=== PATIENT | female | born 1950 | race Caucasian/White ===

== ENCOUNTER 2023-10-22 23:31 | Inpatient (IN) | payer MEDICARE ==
[~2023-10-22] VITALS: Ht 167.6 cm; Wt 75.7 kg
[2023-10-23] VITALS (9 sets, daily range): BP systolic 113–134; BP diastolic 55–65; PULSE 69–82; RESP 16–20; TEMP 97.9–98.2; O2SAT 95–100
[2023-10-23] MEDS: SODIUM CHLORIDE 0.9% 1000ML 1,000 ML IV STA (00:19)
[2023-10-23 00:26] LABS: BASOPHILS # (AUTO) 0.2 (0.0-0.1); BASOPHILS % 0.4 % (0.0-1.0); LYMPHOCYTES # (AUTO) 32.5 (1.0-3.2); LYMPHOCYTES % 91.1 % (18.0-39.1); MEAN CORPUSCULAR HEMOGLOBIN 25.5 pg (28-32); MEAN CORPUSCULAR HGB CONC 29.6 g/dL (31-35); MEAN CORPUSCULAR VOLUME 86.1 fL (81-99); MONOCYTES # (AUTO) 1.7 (0.2-0.8); MONOCYTES % 4.8 % (4.4-11.3); NEUTROPHILS # (AUTO) 1.3 (2.1-6.9); NEUTROPHILS % 3.6 % (38.7-80.0); RED BLOOD COUNT 2.67 x10e6/uL (3.6-5.1); RED CELL DISTRIBUTION WIDTH 22.6 % (11.7-14.4)
[2023-10-23 00:41] LABS: ALBUMIN 2.8 g/dL (3.5-5.0); ALBUMIN/GLOBULIN RATIO 0.4 (0.8-2.0); ANION GAP 17.5 mmol/L (8-16); BILIRUBIN,TOTAL 1.3 mg/dL (0.2-1.2); CREATININE, SERUM 1.31 mg/dL (0.57-1.11); POTASSIUM 3.5 mmol/L (3.5-5.1); TOTAL PROTEIN 9.4 g/dL (6.5-8.1)
[2023-10-23 00:46] LABS: HEMOGLOBIN 6.8 g/dL (12.0-16.0); PLATELET COUNT 25 x10e3/uL (140-360); TROPONIN I 0.006 ng/mL (0-0.300); WHITE BLOOD COUNT 35.61 x10e3/uL (4.8-10.8)
[2023-10-23] MEDS ORDERED: ONDANSETRON HCL INJ 2MG/ML 2ML 2 MG/ML VIAL IV PRN (05:30)
[2023-10-23] MEDS ORDERED: Morphine 4mg INJECTION 4 MG/ML INJ IV PRN (05:30)
[2023-10-23] MEDS ORDERED: SODIUM CHLORIDE 0.9% 250ML 250 ML ONE (05:34)
[2023-10-23 06:07] LABS: LYMPHOCYTES % (MANUAL) 84 % (19-48); MONOCYTES % (MANUAL) 2 % (3.4-9.0); NEUTROPHILS % (MANUAL) 14 % (40-74)
[2023-10-23 06:08] LABS: ANISOCYTOSIS MODERATE; HYPOCHROMASIA SLIGHT; PLATELET ESTIMATE MARKEDLY DECREASED; PLATELET MORPHOLOGY COMMENT NORMAL; RBC MORPHOLOGY COMMENT ABNORMAL
[2023-10-23] MEDS ORDERED: IOPAMIDOL 370 MG/ML 100 ML INFUS..BTL INJ ONE (06:10)
[2023-10-23 06:13] LABS: SMUDGE CELLS MODERATE
[2023-10-23] MEDS: SODIUM CHLORIDE 0.9% 1000ML 1,000 ML IV SCH (09:20)
[2023-10-23 12:55] LABS: INR 1.2
[2023-10-23 12:56] LABS: PARTIAL THROMBOPLASTIN TIME 28.4 seconds (23.8-35.5)
[2023-10-23 13:08] LABS: TROPONIN I 0.001 ng/mL (0-0.300)
[2023-10-23 13:21] LABS: FERRITIN 212.21 ng/mL (4.63-204.00)
[2023-10-23] MEDS ORDERED: PLAVIX75 MG PO (13:42)
[2023-10-23] MEDS ORDERED: LIPITOR20 MG PO (13:42)
[2023-10-23] MEDS ORDERED: CARVEDILOL3.125 MG PO (13:42)
[2023-10-23] MEDS ORDERED: NIFEDIPINE ER30 M1 PO (13:42)
[2023-10-23] MEDS ORDERED: K-DUR10 MEQ PO (13:42)
[2023-10-23] MEDS ORDERED: HYDROCHLOROTHIA25 MG PO (13:42)
[2023-10-23 15:48] LABS: FOLATE 3.1 ng/mL (7.0-15.4)
[2023-10-23 16:56] LABS: TROPONIN I 0.001 ng/mL (0-0.300)
[2023-10-24] VITALS (8 sets, daily range): BP systolic 109–139; BP diastolic 51–59; PULSE 66–76; RESP 16–20; TEMP 97.4–98.3; O2SAT 95–99
[2023-10-24 05:18] LABS: BASOPHILS % 0.1 % (0.0-1.0); HEMATOCRIT 26.2 % (34.2-44.1); HEMOGLOBIN 7.9 g/dL (12.0-16.0); LYMPHOCYTES # (AUTO) 29.7 (1.0-3.2); LYMPHOCYTES % 91.7 % (18.0-39.1); MEAN CORPUSCULAR HEMOGLOBIN 26.2 pg (28-32); MEAN CORPUSCULAR HGB CONC 30.2 g/dL (31-35); MONOCYTES # (AUTO) 1.5 (0.2-0.8); MONOCYTES % 4.6 % (4.4-11.3); NEUTROPHILS # (AUTO) 1.2 (2.1-6.9); NEUTROPHILS % 3.5 % (38.7-80.0); PLATELET COUNT 18 x10e3/uL (140-360); RED BLOOD COUNT 3.01 x10e6/uL (3.6-5.1); RED CELL DISTRIBUTION WIDTH 21.4 % (11.7-14.4)
[2023-10-24 05:36] LABS: ALBUMIN 2.6 g/dL (3.5-5.0); ALBUMIN/GLOBULIN RATIO 0.4 (0.8-2.0); ANION GAP 16.4 mmol/L (8-16); BILIRUBIN,TOTAL 1.4 mg/dL (0.2-1.2); CALCIUM 8.5 mg/dL (8.4-10.2); CREATININE, SERUM 1.1 mg/dL (0.57-1.11); TOTAL PROTEIN 8.6 g/dL (6.5-8.1)
[2023-10-24 05:43] LABS: POTASSIUM 3.4 mmol/L (3.5-5.1)
[2023-10-24 06:08] LABS: TROPONIN I 0.004 ng/mL (0-0.300)
[2023-10-24 06:57] LABS: LYMPHOCYTES % (MANUAL) 92 % (19-48); MONOCYTES % (MANUAL) 1 % (3.4-9.0); NEUTROPHILS % (MANUAL) 7 % (40-74); PLATELET ESTIMATE MARKEDLY DECREASED
[2023-10-24 06:58] LABS: ANISOCYTOSIS MODERATE; HYPOCHROMASIA SLIGHT; PLATELET MORPHOLOGY COMMENT NORMAL; RBC MORPHOLOGY COMMENT ABNORMAL; SMUDGE CELLS MODERATE
[2023-10-24 08:02] LABS: HEPATITIS B SURFACE AG (P) Negative
[2023-10-24 08:03] LABS: HEPATITIS C ANTIBODY Non Reactive
[2023-10-24] MEDS: NIFEDIPINE CR 30 MG TAB PO SCH (09:52)
[2023-10-24] MEDS: CARVEDILOL 3.125 MG TAB PO SCH (09:53)
[2023-10-24] MEDS ORDERED: SODIUM CHLORIDE 0.9% 100 ML ONE (18:34)
[2023-10-24] MEDS: FOLIC ACID 1 MG TAB PO SCH (18:37)
[2023-10-25] VITALS (7 sets, daily range): BP systolic 102–121; BP diastolic 51–71; PULSE 66–79; RESP 16–20; TEMP 97.9–98.7; O2SAT 97–98
[2023-10-25] MEDS: CYANOCOBALAMIN 1,000 MCG TAB PO ONE (01:43)
[2023-10-25 06:17] LABS: HEMATOCRIT 24.4 % (34.2-44.1); HEMOGLOBIN 7.5 g/dL (12.0-16.0); MEAN CORPUSCULAR HEMOGLOBIN 26.8 pg (28-32); MEAN CORPUSCULAR HGB CONC 30.7 g/dL (31-35); MEAN CORPUSCULAR VOLUME 87.1 fL (81-99); RED CELL DISTRIBUTION WIDTH 21.5 % (11.7-14.4); WHITE BLOOD COUNT 27.91 x10e3/uL (4.8-10.8)
[2023-10-25 06:29] LABS: PLATELET COUNT 25 x10e3/uL (140-360)
[2023-10-25 06:32] LABS: ALBUMIN 2.5 g/dL (3.5-5.0); ALBUMIN/GLOBULIN RATIO 0.4 (0.8-2.0); ANION GAP 16.4 mmol/L (8-16); BILIRUBIN,TOTAL 1.4 mg/dL (0.2-1.2); CALCIUM 8.7 mg/dL (8.4-10.2); TOTAL PROTEIN 8.1 g/dL (6.5-8.1)
[2023-10-25 06:39] LABS: POTASSIUM 3.4 mmol/L (3.5-5.1)
[2023-10-25] MEDS: CYANOCOBALAMIN 1,000 MCG TAB PO SCH (11:22)
[2023-10-25] MEDS ORDERED: ONDANSETRON HCL 4 MG ORAL DISINTEGRATING TAB PO PRN (11:30)
[2023-10-25 12:07] LABS: LYMPHOCYTES % (MANUAL) 95 % (19-48); MONOCYTES % (MANUAL) 2 % (3.4-9.0); NEUTROPHILS % (MANUAL) 3 % (40-74); PLATELET ESTIMATE MARKEDLY DECREASED; PLATELET MORPHOLOGY COMMENT NORMAL; RBC MORPHOLOGY COMMENT NORMAL
[2023-10-25] MEDS: SODIUM FERRIC GLUCONATE COMPLX 125 MG in SODIUM CHLORIDE 0.9% 100 ML IV ONE ×2 (13:45→13:51)
[2023-10-25] MEDS: SODIUM CHLORIDE 0.9% 250ML 250 ML IV ONE (13:45)
[2023-10-26] VITALS (7 sets, daily range): BP systolic 91–132; BP diastolic 52–79; PULSE 64–84; RESP 17–19; TEMP 97.7–98.4; O2SAT 96–100
[2023-10-26] MEDS ORDERED: PIPERACILLIN/TAZOBACTAM 3.375 GM VIAL ONE (09:09)
[2023-10-26] MEDS: PREDNISONE 20 MG TAB PO SCH (13:12)
[2023-10-26 15:02] LABS: BASOPHILS # (AUTO) 0.1 (0.0-0.1); BASOPHILS % 0.3 % (0.0-1.0); HEMATOCRIT 24.6 % (34.2-44.1); HEMOGLOBIN 7.4 g/dL (12.0-16.0); LYMPHOCYTES # (AUTO) 23.4 (1.0-3.2); LYMPHOCYTES % 93.6 % (18.0-39.1); MEAN CORPUSCULAR HEMOGLOBIN 26.3 pg (28-32); MEAN CORPUSCULAR HGB CONC 30.1 g/dL (31-35); MEAN CORPUSCULAR VOLUME 87.5 fL (81-99); MONOCYTES # (AUTO) 0.6 (0.2-0.8); MONOCYTES % 2.5 % (4.4-11.3); NEUTROPHILS # (AUTO) 0.9 (2.1-6.9); NEUTROPHILS % 3.5 % (38.7-80.0); RED BLOOD COUNT 2.81 x10e6/uL (3.6-5.1); RED CELL DISTRIBUTION WIDTH 21.7 % (11.7-14.4); WHITE BLOOD COUNT 25.01 x10e3/uL (4.8-10.8)
[2023-10-26 15:10] LABS: PLATELET COUNT 19 x10e3/uL (140-360)
[2023-10-26] MEDS: ROPINIROLE HCL 0.25 MG TAB PO SCH (16:42)
[2023-10-26 16:44] LABS: HYPOCHROMASIA MODERATE; LYMPHOCYTES % (MANUAL) 87 % (19-48); MONOCYTES % (MANUAL) 2 % (3.4-9.0); NEUTROPHILS % (MANUAL) 11 % (40-74); PLATELET ESTIMATE MARKEDLY DECREASED; PLATELET MORPHOLOGY COMMENT NORMAL
[2023-10-26] MEDS: PREDNISONE 10 MG TAB PO ONE (18:25)
[2023-10-27] VITALS: BP_SYST 111; BP_SYST 129; BP_DIAS 54; BP_DIAS 63; PULSE 64; PULSE 75; RESP 17; RESP 18; TEMP 97.7; TEMP 97.8; O2SAT 100; O2SAT 99
[2023-10-27 05:45] LABS: BASOPHILS % 0.1 % (0.0-1.0); EOSINOPHILS # (AUTO) 0.1 (0.0-0.4); EOSINOPHILS % 0.2 % (0.0-6.0); HEMATOCRIT 25.9 % (34.2-44.1); HEMOGLOBIN 7.7 g/dL (12.0-16.0); LYMPHOCYTES # (AUTO) 26.7 (1.0-3.2); LYMPHOCYTES % 93.1 % (18.0-39.1); MEAN CORPUSCULAR HEMOGLOBIN 26.4 pg (28-32); MEAN CORPUSCULAR HGB CONC 29.7 g/dL (31-35); MEAN CORPUSCULAR VOLUME 88.7 fL (81-99); MONOCYTES # (AUTO) 0.4 (0.2-0.8); MONOCYTES % 1.4 % (4.4-11.3); NEUTROPHILS # (AUTO) 1.5 (2.1-6.9); NEUTROPHILS % 5.1 % (38.7-80.0); RED BLOOD COUNT 2.92 x10e6/uL (3.6-5.1); RED CELL DISTRIBUTION WIDTH 21.7 % (11.7-14.4); WHITE BLOOD COUNT 28.67 x10e3/uL (4.8-10.8)
[2023-10-27 05:58] LABS: PLATELET COUNT 29 x10e3/uL (140-360)
[2023-10-27 06:03] LABS: ANION GAP 18.7 mmol/L (8-16); CALCIUM 8.9 mg/dL (8.4-10.2); CREATININE, SERUM 1.09 mg/dL (0.57-1.11); POTASSIUM 3.7 mmol/L (3.5-5.1)
[2023-10-27 07:56] VITALS: BP 111/54; PULSE 75; RESP 17; TEMP 97.7; O2SAT 99
[2023-10-27 08:21] VITALS: BP 125/58; PULSE 82; RESP 20; TEMP 98; O2SAT 97
[2023-10-27 10:37] LABS: LYMPHOCYTES % (MANUAL) 96 % (19-48); NEUTROPHILS % (MANUAL) 4 % (40-74)
[2023-10-27 10:38] LABS: HYPOCHROMASIA MODERATE; PLATELET ESTIMATE MARKEDLY DECREASED; PLATELET MORPHOLOGY COMMENT NORMAL
[2023-10-27] MEDS: SODIUM CHLORIDE 0.9% 100 ML ONE (10:52)
[2023-10-27 12:38] VITALS: BP 96/60; PULSE 64; RESP 18; TEMP 97.5; O2SAT 95
[2023-10-31 07:27] LABS: SPE ALPHA 1 GLOBULIN 0.4
[2023-10-31 07:28] LABS: SPE GAMMA GLOBULIN 2.6; SPE TOTAL PROTEIN 7.8
[2023-10-31 07:29] LABS: GLOBULIN TOTAL 5.1
[2023-10-31 07:30] LABS: A/G RATIO 0.5; KAPPA LIGHT CHAINS 54.8
[2023-10-31 07:31] LABS: KAPPA/LAMBDA RATIO 3.81; LAMBDA LIGHT CHAINS 14.4
== END 2023-10-27 12:25 | disposition home or self-care (01) | DRG 841 ==
LOC: ER 23:41 → ERHOLD 10-23 05:34 → MED/SURG2 10-23 06:29
PROVIDERS: ADMIT Internal Medicine; ATTEND Internal Medicine
PROC: 30233N1 Transfusion of Nonautologous Red Blood Cells into Peripheral Vein, Percutaneous Approach (ICD-10-PCS; principal; 2023-10-23)
PROC: 30233R1 Transfusion of Nonautologous Platelets into Peripheral Vein, Percutaneous Approach (ICD-10-PCS; 2023-10-25)
DX: C91.10 Chronic lymphocytic leukemia of B-cell type not having achieved remission (principal); J81.1 Chronic pulmonary edema; K76.6 Portal hypertension; K74.69 Other cirrhosis of liver; R18.8 Other ascites; K75.81 Nonalcoholic steatohepatitis (NASH); D69.59 Other secondary thrombocytopenia; D73.2 Chronic congestive splenomegaly; D64.9 Anemia, unspecified; E78.5 Hyperlipidemia, unspecified; E87.70 Fluid overload, unspecified; K80.20 Calculus of gallbladder without cholecystitis without obstruction; I10 Essential (primary) hypertension; I25.10 Atherosclerotic heart disease of native coronary artery without angina pectoris; Z11.52 Encounter for screening for COVID-19; G25.81 Restless legs syndrome; N28.9 Disorder of kidney and ureter, unspecified; R63.4 Abnormal weight loss; Z79.02 Long term (current) use of antithrombotics/antiplatelets; Z95.5 Presence of coronary angioplasty implant and graft; F17.210 Nicotine dependence, cigarettes, uncomplicated
CPT/HCPCS: 36415; 70450; 71045; 71250; 74177; 80048; 80053; 82550; 82607; 82728; 82746; 83010; 83540; 83615; 83690; 83880; 84165; 84466; 84484; 85007; 85025; 85027; 85045; 85610; 85730; 86850; 86900; 86920; 88184; 93005; 93306; 93880; 94799; 99284; J2543; J2916; J7030; J7050; J7512; P9016; P9034; Q9967; U0002

== ENCOUNTER 2023-11-11 16:29 | Inpatient (IN) | payer MEDICARE ==
[~2023-11-11] VITALS: Ht 167.6 cm; Wt 75.7 kg
[~2023-11-11 16:29] MED LIST: CARVEDILOL3.125 MG PO; HYDROCHLOROTHIA25 MG PO; K-DUR10 MEQ PO; LIPITOR20 MG PO; NIFEDIPINE ER30 M1 PO; PLAVIX75 MG PO
[2023-11-11 18:52] LABS: BASOPHILS # (AUTO) 0.2 (0.0-0.1); BASOPHILS % 0.4 % (0.0-1.0); LYMPHOCYTES # (AUTO) 44.1 (1.0-3.2); LYMPHOCYTES % 92.2 % (18.0-39.1); MEAN CORPUSCULAR HEMOGLOBIN 27.4 pg (28-32); MEAN CORPUSCULAR HGB CONC 30.3 g/dL (31-35); MEAN CORPUSCULAR VOLUME 90.5 fL (81-99); MONOCYTES # (AUTO) 2.1 (0.2-0.8); MONOCYTES % 4.3 % (4.4-11.3); NEUTROPHILS # (AUTO) 1.4 (2.1-6.9); RED BLOOD COUNT 2.52 x10e6/uL (3.6-5.1); RED CELL DISTRIBUTION WIDTH 23.8 % (11.7-14.4)
[2023-11-11 18:55] LABS: HEMATOCRIT 22.8 % (34.2-44.1); PLATELET COUNT 54 x10e3/uL (140-360)
[2023-11-11 18:56] LABS: WHITE BLOOD COUNT 47.81 x10e3/uL (4.8-10.8)
[2023-11-11 18:57] LABS: HEMOGLOBIN 6.9 g/dL (12.0-16.0)
[2023-11-11 19:03] LABS: INR 1.24; PROTHROMBIN TIME 16.4 seconds (11.9-14.5)
[2023-11-11 19:04] LABS: PARTIAL THROMBOPLASTIN TIME 27.2 seconds (23.8-35.5)
[2023-11-11 19:13] LABS: ALBUMIN 2.7 g/dL (3.5-5.0); ALBUMIN/GLOBULIN RATIO 0.4 (0.8-2.0); ANION GAP 19.5 mmol/L (8-16); BILIRUBIN,TOTAL 1.5 mg/dL (0.2-1.2); CALCIUM 9.1 mg/dL (8.4-10.2); CREATININE, SERUM 1.46 mg/dL (0.57-1.11); TOTAL PROTEIN 9.5 g/dL (6.5-8.1)
[2023-11-11 19:14] LABS: POTASSIUM 5.5 mmol/L (3.5-5.1)
[2023-11-11 20:06] LABS: LYMPHOCYTES % (MANUAL) 94 % (19-48); MONOCYTES % (MANUAL) 1 % (3.4-9.0); NEUTROPHILS % (MANUAL) 5 % (40-74)
[2023-11-11 20:07] LABS: ANISOCYTOSIS MODERATE; HYPOCHROMASIA SLIGHT; PLATELET ESTIMATE MARKEDLY DECREASED; PLATELET MORPHOLOGY COMMENT NORMAL; RBC MORPHOLOGY COMMENT ABNORMAL; SMUDGE CELLS MODERATE
[2023-11-11] MEDS ORDERED: ONDANSETRON HCL INJ 2MG/ML 2ML 2 MG/ML VIAL IV PRN (20:30)
[2023-11-11] MEDS ORDERED: DEXTROSE 50% SYRINGE 50 ML IV PRN (20:30)
[2023-11-11] MEDS ORDERED: SODIUM CHLORIDE FLUSH 10 ML SYR INJ PRN (20:30)
[2023-11-11] MEDS: INSULIN REGULAR, HUMAN 100 UNIT/1 ML SQ SCH (21:00)
[2023-11-11 21:54] VITALS: PULSE 70; RESP 20; TEMP 98.8
[2023-11-11 22:00] VITALS: BP 117/55; PULSE 73; RESP 18; TEMP 97.4; O2SAT 100
[2023-11-11 22:30] VITALS: PULSE 73; RESP 18; O2SAT 96
[2023-11-11] MEDS ORDERED: FOLIC ACID0.4 MG PO (23:19)
[2023-11-11] MEDS ORDERED: B12 ACTIVE1000 MCG PO (23:19)
[2023-11-11] MEDS ORDERED: FEROSUL325 MG PO (23:19)
[2023-11-11] MEDS ORDERED: CARVEDILOL3.125 MG PO (23:19)
[2023-11-11] MEDS ORDERED: ROPINIROLE HCL1 MG PO (23:19)
[2023-11-11] MEDS ORDERED: FARXIGA10 MG PO (23:19)
[2023-11-11 23:20] VITALS: BP 122/56; PULSE 73; RESP 18; TEMP 97.4; O2SAT 96
[2023-11-12] VITALS (8 sets, daily range): BP systolic 114–129; BP diastolic 52–63; PULSE 66–74; RESP 16–18; TEMP 97.4–97.9; O2SAT 94–100
[2023-11-12 10:52] LABS: HEMATOCRIT 25.4 % (34.2-44.1); HEMOGLOBIN 7.7 g/dL (12.0-16.0); LYMPHOCYTES # (AUTO) 46.7 (1.0-3.2); LYMPHOCYTES % 93.3 % (18.0-39.1); MEAN CORPUSCULAR HEMOGLOBIN 27.5 pg (28-32); MEAN CORPUSCULAR HGB CONC 30.3 g/dL (31-35); MEAN CORPUSCULAR VOLUME 90.7 fL (81-99); NEUTROPHILS # (AUTO) 1.3 (2.1-6.9); NEUTROPHILS % 2.6 % (38.7-80.0); PLATELET COUNT 30 x10e3/uL (140-360); RED CELL DISTRIBUTION WIDTH 21.9 % (11.7-14.4)
[2023-11-12 11:03] LABS: WHITE BLOOD COUNT 50.11 x10e3/uL (4.8-10.8)
[2023-11-12 11:17] LABS: ALBUMIN 2.6 g/dL (3.5-5.0); ALBUMIN/GLOBULIN RATIO 0.4 (0.8-2.0); ANION GAP 17.3 mmol/L (8-16); BILIRUBIN,TOTAL 1.4 mg/dL (0.2-1.2); CALCIUM 9.2 mg/dL (8.4-10.2); CREATININE, SERUM 1.37 mg/dL (0.57-1.11); POTASSIUM 5.3 mmol/L (3.5-5.1)
[2023-11-12 12:13] LABS: LYMPHOCYTES % (MANUAL) 93 % (19-48); MONOCYTES % (MANUAL) 1 % (3.4-9.0); NEUTROPHILS % (MANUAL) 4 % (40-74); REACTIVE LYMPHOCYTES 2
[2023-11-12 12:14] LABS: SMUDGE CELLS MODERATE
[2023-11-12 12:17] LABS: ANISOCYTOSIS MODERATE; HYPOCHROMASIA SLIGHT; PLATELET ESTIMATE MARKEDLY DECREASED; PLATELET MORPHOLOGY COMMENT NORMAL; RBC MORPHOLOGY COMMENT ABNORMAL; TARGET CELLS FEW
[2023-11-12 12:21] LABS: POLYCHROMASIA FEW
[2023-11-12] MEDS ORDERED: ALBUTEROL/IPRATROPIUM 3 ML NEB NEB PRN (12:45)
[2023-11-12] MEDS ORDERED: SIMETHICONE 80 MG CHEW PO PRN (12:45)
[2023-11-12] MEDS ORDERED: MELATONIN 3 MG TAB PO PRN (12:45)
[2023-11-12] MEDS ORDERED: DOCUSATE SODIUM 100 MG CAP PO PRN (12:45)
[2023-11-12] MEDS: CARVEDILOL 3.125 MG TAB PO SCH (16:32)
[2023-11-12 17:41] LABS: FERRITIN 332.99 ng/mL (4.63-204.00)
[2023-11-12] MEDS ORDERED: CALCIUM CARBONATE 500 MG CHEWABLE TABS PO PRN (20:15)
[2023-11-13] VITALS: BP 115/62; PULSE 77; RESP 18; TEMP 97.8; O2SAT 95
[2023-11-13 04:00] VITALS: BP 103/49; PULSE 72; RESP 18; TEMP 98; O2SAT 95
[2023-11-13 04:56] LABS: BASOPHILS # (AUTO) 0.2 (0.0-0.1); BASOPHILS % 0.4 % (0.0-1.0); HEMATOCRIT 24.5 % (34.2-44.1); LYMPHOCYTES # (AUTO) 37.4 (1.0-3.2); LYMPHOCYTES % 92.9 % (18.0-39.1); MEAN CORPUSCULAR HEMOGLOBIN 27.9 pg (28-32); MEAN CORPUSCULAR HGB CONC 30.6 g/dL (31-35); MEAN CORPUSCULAR VOLUME 91.1 fL (81-99); MONOCYTES # (AUTO) 1.9 (0.2-0.8); MONOCYTES % 4.6 % (4.4-11.3); NEUTROPHILS # (AUTO) 0.8 (2.1-6.9); RED BLOOD COUNT 2.69 x10e6/uL (3.6-5.1); RED CELL DISTRIBUTION WIDTH 22.4 % (11.7-14.4)
[2023-11-13 05:13] LABS: HEMOGLOBIN 7.5 g/dL (12.0-16.0); PLATELET COUNT 26 x10e3/uL (140-360); WHITE BLOOD COUNT 40.22 x10e3/uL (4.8-10.8)
[2023-11-13 05:21] LABS: ANION GAP 8.8 mmol/L (8-16); CALCIUM 9.8 mg/dL (8.4-10.2); CREATININE, SERUM 1.09 mg/dL (0.57-1.11); POTASSIUM 4.8 mmol/L (3.5-5.1)
[2023-11-13 06:23] VITALS: PULSE 74; RESP 20; O2SAT 98
[2023-11-13 06:42] LABS: ANISOCYTOSIS MODERATE; HYPOCHROMASIA SLIGHT; LYMPHOCYTES % (MANUAL) 96 % (19-48); MONOCYTES % (MANUAL) 1 % (3.4-9.0); NEUTROPHILS % (MANUAL) 3 % (40-74); NUCLEATED RED BLOOD CELLS 1; PLATELET ESTIMATE MARKEDLY DECREASED; PLATELET MORPHOLOGY COMMENT NORMAL; RBC MORPHOLOGY COMMENT ABNORMAL
[2023-11-13] MEDS: SODIUM CHLORIDE 0.9% 250ML 250 ML ONE ×2 (08:28)
[2023-11-13] MEDS: MECOBALAMIN PO SCH (09:00)
[2023-11-13 09:30] VITALS: BP 116/55; PULSE 74; RESP 20; TEMP 98.1; O2SAT 98
[2023-11-13] MEDS: ROPINIROLE HCL 0.25 MG TAB PO SCH (10:05)
[2023-11-13] MEDS: FAMOTIDINE 20 MG/2 ML VIAL IV SCH (10:07)
[2023-11-13] MEDS: FERROUS SULFATE 325 MG TAB PO SCH (10:07)
[2023-11-13] MEDS: FOLIC ACID 1 MG TAB PO SCH (10:07)
[2023-11-13] MEDS ORDERED: SODIUM CHLORI1000 MG PO (13:23)
[2023-11-13] MEDS ORDERED: LIDOCAINE HCL 1% LOCAL INJ 20 ML VIAL ONE (14:04)
[2023-11-13] MEDS ORDERED: FENTANYL CITRATE/PF 100MCG/2 ML INJ ONE (14:19)
[2023-11-13] MEDS ORDERED: MIDAZOLAM HCL 2 MG/2 ML VIAL ONE (14:19)
[2023-11-13] MEDS ORDERED: SODIUM CHLORIDE 0.9% 250ML 250 ML ONE (14:19)
[2023-11-13] MEDS ORDERED: ONDANSETRON HCL 4 MG ORAL DISINTEGRATING TAB PO PRN (16:15)
[2023-11-13 17:20] VITALS: BP 119/64; PULSE 73; RESP 18; TEMP 97.7; O2SAT 99
[2023-11-13 17:42] VITALS: BP 119/64
[2023-11-14] MEDS ORDERED: FAMOTIDINE 20 MG TAB PO SCH (09:00)
== END 2023-11-13 18:16 | disposition home or self-care (01) | DRG 841 ==
LOC: ER 18:48 → ERHOLD 20:26 → MED/SURG 22:15
PROVIDERS: ADMIT Internal Medicine; ATTEND Internal Medicine
PROC: 30233N1 Transfusion of Nonautologous Red Blood Cells into Peripheral Vein, Percutaneous Approach (ICD-10-PCS; 2023-11-12)
PROC: 30233N1 Transfusion of Nonautologous Red Blood Cells into Peripheral Vein, Percutaneous Approach (ICD-10-PCS; 2023-11-12)
PROC: 07DR3ZX Extraction of Iliac Bone Marrow, Percutaneous Approach, Diagnostic (ICD-10-PCS; principal; 2023-11-13)
DX: C83.00 Small cell B-cell lymphoma, unspecified site (principal); E87.1 Hypo-osmolality and hyponatremia; E87.20 Acidosis, unspecified; D63.0 Anemia in neoplastic disease; D69.59 Other secondary thrombocytopenia; E87.5 Hyperkalemia; I12.9 Hypertensive chronic kidney disease with stage 1 through stage 4 chronic kidney disease, or unspecified chronic kidney disease; E11.22 Type 2 diabetes mellitus with diabetic chronic kidney disease; N18.30 Chronic kidney disease, stage 3 unspecified; K75.81 Nonalcoholic steatohepatitis (NASH); K74.60 Unspecified cirrhosis of liver; I25.10 Atherosclerotic heart disease of native coronary artery without angina pectoris; Z95.5 Presence of coronary angioplasty implant and graft; F17.200 Nicotine dependence, unspecified, uncomplicated; Z11.52 Encounter for screening for COVID-19; Z79.899 Other long term (current) drug therapy
CPT/HCPCS: 36415; 38222; 71045; 74470; 77012; 80048; 80053; 82607; 82728; 82746; 82948; 83010; 83540; 83615; 83880; 84466; 85025; 85045; 85610; 85730; 86850; 86900; 86920; 94799; 99152; 99284; J2001; J2250; J7050; P9016; U0002

== ENCOUNTER 2023-12-08 17:00 | Inpatient (IN) | payer MEDICARE ==
[~2023-12-08] VITALS: Ht 167.6 cm; Wt 75.7 kg
[~2023-12-08 17:00] MED LIST changes: +B12 ACTIVE1000 MCG PO; +FARXIGA10 MG PO; +FEROSUL325 MG PO; +FOLIC ACID0.4 MG PO; +ROPINIROLE HCL1 MG PO; +SODIUM CHLORI1000 MG PO
[2023-12-08 17:47] LABS: LYMPHOCYTES # (AUTO) 48.9 (1.0-3.2); LYMPHOCYTES % 89.8 % (18.0-39.1); MEAN CORPUSCULAR HEMOGLOBIN 28.3 pg (28-32); MEAN CORPUSCULAR HGB CONC 29.7 g/dL (31-35); MEAN CORPUSCULAR VOLUME 95.3 fL (81-99); MONOCYTES # (AUTO) 2.3 (0.2-0.8); MONOCYTES % 4.2 % (4.4-11.3); NEUTROPHILS # (AUTO) 3.2 (2.1-6.9); NEUTROPHILS % 5.8 % (38.7-80.0); RED BLOOD COUNT 2.12 x10e6/uL (3.6-5.1); RED CELL DISTRIBUTION WIDTH 20.9 % (11.7-14.4)
[2023-12-08 17:48] LABS: PLATELET COUNT 33 x10e3/uL (140-360)
[2023-12-08 17:50] LABS: HEMATOCRIT 20.2 % (34.2-44.1); WHITE BLOOD COUNT 54.45 x10e3/uL (4.8-10.8)
[2023-12-08 17:53] LABS: INR 1.24; PROTHROMBIN TIME 16.2 seconds (11.9-14.5)
[2023-12-08 17:54] LABS: PARTIAL THROMBOPLASTIN TIME 24.8 seconds (23.8-35.5)
[2023-12-08 18:01] LABS: COVID 19 ANTIGEN NOT DETECTED (NEGATIVE)
[2023-12-08 18:02] LABS: ALANINE AMINOTRANSFERASE 23 IU/L (0-55); ALBUMIN 2.7 g/dL (3.5-5.0); ALBUMIN/GLOBULIN RATIO 0.4 (0.8-2.0); ALKALINE PHOSPHATASE 132 IU/L (40-150); ANION GAP 18.4 mmol/L (8-16); BILIRUBIN,TOTAL 1.6 mg/dL (0.2-1.2); BLOOD UREA NITROGEN 43 mg/dL (7-26); BUN/CREATININE RATIO 36 (6-25); CALCIUM 9.3 mg/dL (8.4-10.2); CARBON DIOXIDE 24 mmol/L (22-29); CHLORIDE 90 mmol/L (98-107); CREATININE, SERUM 1.19 mg/dL (0.57-1.11); EST GLOMERULAR FILTRATION RATE 48 ML/MIN (>=60); GLUCOSE 136 mg/dL (74-118); POTASSIUM 4.4 mmol/L (3.5-5.1); SODIUM 128 mmol/L (136-145); TOTAL PROTEIN 9.4 g/dL (6.5-8.1)
[2023-12-08] MEDS ORDERED: ONDANSETRON HCL INJ 2MG/ML 2ML 2 MG/ML VIAL IV PRN (18:45)
[2023-12-08] MEDS ORDERED: DEXTROSE 50% SYRINGE 50 ML IV PRN (18:45)
[2023-12-08] MEDS ORDERED: SODIUM CHLORIDE FLUSH 10 ML SYR INJ PRN (18:45)
[2023-12-08 18:55] LABS: TROPONIN I < 0.05 ng/mL (0.0-0.40)
[2023-12-08 19:08] VITALS: PULSE 87; RESP 23; TEMP 98.2
[2023-12-08 19:15] LABS: CREATINE KINASE 11 IU/L (29-168)
[2023-12-08 20:00] VITALS: BP 101/51; PULSE 86; RESP 20; TEMP 98.4; O2SAT 97
[2023-12-08] MEDS ORDERED: FUROSEMIDE40 MG PO (20:48)
[2023-12-08] MEDS ORDERED: ONDANSETRON ODT4 MG PO (20:48)
[2023-12-08] MEDS ORDERED: PREDNISONE20 MG PO (20:48)
[2023-12-08] MEDS ORDERED: ALLOPURINOL300 MG PO (20:48)
[2023-12-08] MEDS ORDERED: ALBUTEROL (20:48)
[2023-12-08] MEDS ORDERED: ALBUTEROL0.63 MG/3 NEB (20:58)
[2023-12-08] MEDS: INSULIN REGULAR, HUMAN 100 UNIT/1 ML SQ SCH (21:00)
[2023-12-08 21:10] VITALS: PULSE 85; RESP 16; O2SAT 95
[2023-12-08] MEDS: FAMOTIDINE 20 MG/2 ML VIAL IV ONE (21:55)
[2023-12-08] MEDS: ROPINIROLE HCL 0.25 MG TAB PO SCH (23:08)
[2023-12-08 23:24] VITALS: BP 106/52; PULSE 84; RESP 19; TEMP 98.2; O2SAT 95
[2023-12-08 23:49] VITALS: BP 106/52; PULSE 84; RESP 19; TEMP 98.2; O2SAT 95
[2023-12-09] VITALS (11 sets, daily range): BP systolic 100–117; BP diastolic 45–61; PULSE 79–86; RESP 16–20; TEMP 97.7–98.3; O2SAT 92–98
[2023-12-09] MEDS: FUROSEMIDE INJ 10 MG/ML 2 ML VIAL IV SCH (02:47)
[2023-12-09 08:27] LABS: HEMATOCRIT 25.1 % (34.2-44.1); HEMOGLOBIN 7.7 g/dL (12.0-16.0); LYMPHOCYTES # (AUTO) 45.4 (1.0-3.2); MEAN CORPUSCULAR HEMOGLOBIN 28.7 pg (28-32); MEAN CORPUSCULAR HGB CONC 30.7 g/dL (31-35); MEAN CORPUSCULAR VOLUME 93.7 fL (81-99); MONOCYTES % 4.1 % (4.4-11.3); NEUTROPHILS # (AUTO) 2.4 (2.1-6.9); NEUTROPHILS % 4.7 % (38.7-80.0); RED BLOOD COUNT 2.68 x10e6/uL (3.6-5.1); RED CELL DISTRIBUTION WIDTH 19.4 % (11.7-14.4)
[2023-12-09 08:28] LABS: PLATELET COUNT 35 x10e3/uL (140-360)
[2023-12-09 08:35] LABS: WHITE BLOOD COUNT 49.87 x10e3/uL (4.8-10.8)
[2023-12-09] MEDS: SODIUM CHLORIDE 0.9% 250ML 250 ML IV ONE (09:29)
[2023-12-09] MEDS: SODIUM CHLORIDE 0.9% 250ML 250 ML ONE ×2 (09:29)
[2023-12-09 09:32] LABS: ALBUMIN 2.6 g/dL (3.5-5.0); ALBUMIN/GLOBULIN RATIO 0.4 (0.8-2.0); ANION GAP 17.3 mmol/L (8-16); BILIRUBIN,TOTAL 1.8 mg/dL (0.2-1.2); CALCIUM 9.2 mg/dL (8.4-10.2); CREATININE, SERUM 1.25 mg/dL (0.57-1.11); POTASSIUM 4.3 mmol/L (3.5-5.1)
[2023-12-09] MEDS ORDERED: ALBUTEROL/IPRATROPIUM 3 ML NEB NEB PRN (10:45)
[2023-12-09] MEDS ORDERED: ALBUTEROL SULF 0.083% NEB SOLN 3 ML NEB NEB PRN (10:45)
[2023-12-09] MEDS ORDERED: MELATONIN 3 MG TAB PO PRN (10:45)
[2023-12-09] MEDS: ALLOPURINOL 100 MG TAB PO SCH (12:16)
[2023-12-09] MEDS: SODIUM CHLORIDE 1 GM TAB PO SCH (12:16)
[2023-12-09 12:41] LABS: LYMPHOCYTES % (MANUAL) 91 % (19-48); NEUTROPHILS % (MANUAL) 9 % (40-74)
[2023-12-09 12:42] LABS: ANISOCYTOSIS MODERATE; HYPOCHROMASIA SLIGHT; PLATELET ESTIMATE MARKEDLY DECREASED; PLATELET MORPHOLOGY COMMENT NORMAL; POLYCHROMASIA FEW; RBC MORPHOLOGY COMMENT ABNORMAL
[2023-12-09] MEDS: FUROSEMIDE INJ 10 MG/ML 4 ML VIAL IV SCH (13:16)
[2023-12-09] MEDS ORDERED: CARVEDILOL 3.125 MG TAB PO SCH (17:00)
[2023-12-09] MEDS: SIMETHICONE 80 MG CHEW PO PRN (17:08)
[2023-12-09] MEDS: PREDNISONE 20 MG TAB PO SCH (17:08)
[2023-12-09] MEDS: CARVEDILOL 3.125 MG TAB PO SCH (21:20)
[2023-12-10] VITALS (9 sets, daily range): BP systolic 102–118; BP diastolic 44–61; PULSE 71–80; RESP 16–20; TEMP 97.7–98.3; O2SAT 93–96
[2023-12-10] MEDS: MECOBALAMIN PO SCH (09:00)
[2023-12-10] MEDS ORDERED: FUROSEMIDE 40 MG TAB PO SCH (09:00)
[2023-12-10] MEDS ORDERED: FERROUS SULFATE 325 MG TAB PO SCH (09:00)
[2023-12-10] MEDS: FERROUS SULFATE 325 MG TAB PO SCH (09:18)
[2023-12-10] MEDS: FOLIC ACID 1 MG TAB PO SCH (09:18)
[2023-12-10] MEDS: DOCUSATE SODIUM 100 MG CAP PO PRN (09:30)
[2023-12-10] MEDS ORDERED: ONDANSETRON HCL 4 MG ORAL DISINTEGRATING TAB PO PRN (14:00)
[2023-12-10 14:36] LABS: HEMATOCRIT 24.5 % (34.2-44.1); HEMOGLOBIN 7.4 g/dL (12.0-16.0); LYMPHOCYTES # (AUTO) 31.2 (1.0-3.2); LYMPHOCYTES % 88.5 % (18.0-39.1); MEAN CORPUSCULAR HEMOGLOBIN 28.6 pg (28-32); MEAN CORPUSCULAR HGB CONC 30.2 g/dL (31-35); MEAN CORPUSCULAR VOLUME 94.6 fL (81-99); MONOCYTES # (AUTO) 1.7 (0.2-0.8); MONOCYTES % 4.7 % (4.4-11.3); NEUTROPHILS # (AUTO) 2.3 (2.1-6.9); NEUTROPHILS % 6.6 % (38.7-80.0); RED BLOOD COUNT 2.59 x10e6/uL (3.6-5.1); RED CELL DISTRIBUTION WIDTH 19.6 % (11.7-14.4); WHITE BLOOD COUNT 35.29 x10e3/uL (4.8-10.8)
[2023-12-10 14:40] LABS: PLATELET COUNT 28 x10e3/uL (140-360)
[2023-12-10 15:10] LABS: CALCIUM 8.7 mg/dL (8.4-10.2); CREATININE, SERUM 1.13 mg/dL (0.57-1.11)
[2023-12-11] VITALS: BP 91/42; PULSE 72; RESP 18; TEMP 97.8; O2SAT 94
[2023-12-11 04:00] VITALS: BP 111/53; PULSE 75; RESP 18; TEMP 98.1; O2SAT 94
[2023-12-11 05:42] LABS: BASOPHILS # (AUTO) 0.1 (0.0-0.1); BASOPHILS % 0.4 % (0.0-1.0); HEMATOCRIT 23.6 % (34.2-44.1); HEMOGLOBIN 7.2 g/dL (12.0-16.0); LYMPHOCYTES # (AUTO) 32.4 (1.0-3.2); LYMPHOCYTES % 89.1 % (18.0-39.1); MEAN CORPUSCULAR HEMOGLOBIN 28.7 pg (28-32); MEAN CORPUSCULAR HGB CONC 30.5 g/dL (31-35); MONOCYTES # (AUTO) 1.7 (0.2-0.8); MONOCYTES % 4.7 % (4.4-11.3); NEUTROPHILS # (AUTO) 2.1 (2.1-6.9); NEUTROPHILS % 5.6 % (38.7-80.0); RED BLOOD COUNT 2.51 x10e6/uL (3.6-5.1); RED CELL DISTRIBUTION WIDTH 19.5 % (11.7-14.4); WHITE BLOOD COUNT 36.41 x10e3/uL (4.8-10.8)
[2023-12-11 05:52] LABS: PLATELET COUNT 27 x10e3/uL (140-360)
[2023-12-11 06:17] LABS: ANION GAP 14.9 mmol/L (8-16); CALCIUM 9.3 mg/dL (8.4-10.2); CREATININE, SERUM 1.08 mg/dL (0.57-1.11); POTASSIUM 3.9 mmol/L (3.5-5.1)
[2023-12-11 06:34] VITALS: PULSE 71; RESP 18; O2SAT 96
[2023-12-11] MEDS ORDERED: FUROSEMIDE40 MG PO (07:58)
[2023-12-11 08:00] VITALS: BP 111/53; PULSE 71; RESP 18; TEMP 98.1; O2SAT 96
[2023-12-11 09:40] VITALS: BP 116/53; PULSE 76; RESP 16; TEMP 97.8; O2SAT 97
[2023-12-11 10:37] LABS: LYMPHOCYTES % (MANUAL) 84 % (19-48); MONOCYTES % (MANUAL) 3 % (3.4-9.0); NEUTROPHILS % (MANUAL) 13 % (40-74); PLATELET ESTIMATE MARKEDLY DECREASED; PLATELET MORPHOLOGY COMMENT NORMAL; RBC MORPHOLOGY COMMENT NORMAL
== END 2023-12-11 11:10 | disposition home or self-care (01) | DRG 683 ==
LOC: ER 18:01 → ERHOLD 18:46 → MED/SURG3 20:09 → OBSVTOIN 12-09 12:20
PROVIDERS: ADMIT Internal Medicine; ATTEND Internal Medicine
PROC: 30233N1 Transfusion of Nonautologous Red Blood Cells into Peripheral Vein, Percutaneous Approach (ICD-10-PCS; principal; 2023-12-08)
DX: I12.9 Hypertensive chronic kidney disease with stage 1 through stage 4 chronic kidney disease, or unspecified chronic kidney disease (principal); C91.10 Chronic lymphocytic leukemia of B-cell type not having achieved remission; J81.1 Chronic pulmonary edema; K74.69 Other cirrhosis of liver; R18.8 Other ascites; E87.79 Other fluid overload; K75.81 Nonalcoholic steatohepatitis (NASH); E11.22 Type 2 diabetes mellitus with diabetic chronic kidney disease; D69.59 Other secondary thrombocytopenia; N18.30 Chronic kidney disease, stage 3 unspecified; I25.10 Atherosclerotic heart disease of native coronary artery without angina pectoris; D63.0 Anemia in neoplastic disease; R53.81 Other malaise; E78.5 Hyperlipidemia, unspecified; Z11.52 Encounter for screening for COVID-19; Z79.84 Long term (current) use of oral hypoglycemic drugs; Z95.5 Presence of coronary angioplasty implant and graft; F17.210 Nicotine dependence, cigarettes, uncomplicated
CPT/HCPCS: 0223U; 36415; 71045; 76705; 80048; 80053; 82550; 82948; 83880; 84484; 85025; 85610; 85730; 86850; 86900; 86920; 93005; 94799; 99284; G0378; J1940; J7050; J7512; P9016

== ENCOUNTER 2023-12-23 19:57 | Emergency (ER) | payer MEDICARE ==
[~2023-12-23] VITALS: Ht 167.6 cm; Wt 75.7 kg
[~2023-12-23 19:57] MED LIST changes: +ALBUTEROL; +ALBUTEROL0.63 MG/3 NEB; +ALLOPURINOL300 MG PO; +FUROSEMIDE40 MG PO; +ONDANSETRON ODT4 MG PO; +PREDNISONE20 MG PO
[2023-12-23 21:08] LABS: HEMATOCRIT 24.1 % (34.2-44.1); HEMOGLOBIN 7.1 g/dL (12.0-16.0); LYMPHOCYTES # (AUTO) 46.7 (1.0-3.2); LYMPHOCYTES % 89.7 % (18.0-39.1); MEAN CORPUSCULAR HEMOGLOBIN 28.6 pg (28-32); MEAN CORPUSCULAR HGB CONC 29.5 g/dL (31-35); MEAN CORPUSCULAR VOLUME 97.2 fL (81-99); MONOCYTES # (AUTO) 3.8 (0.2-0.8); MONOCYTES % 7.2 % (4.4-11.3); NEUTROPHILS # (AUTO) 1.5 (2.1-6.9); RED BLOOD COUNT 2.48 x10e6/uL (3.6-5.1); RED CELL DISTRIBUTION WIDTH 19.3 % (11.7-14.4)
[2023-12-23 21:16] LABS: PLATELET COUNT 25 x10e3/uL (140-360); WHITE BLOOD COUNT 52.09 x10e3/uL (4.8-10.8)
[2023-12-23 21:33] LABS: ALBUMIN 2.6 g/dL (3.5-5.0); ALBUMIN/GLOBULIN RATIO 0.4 (0.8-2.0); ANION GAP 22.9 mmol/L (8-16); BILIRUBIN,TOTAL 1.3 mg/dL (0.2-1.2); CALCIUM 9.2 mg/dL (8.4-10.2); CREATININE, SERUM 1.02 mg/dL (0.57-1.11); POTASSIUM 3.9 mmol/L (3.5-5.1); TOTAL PROTEIN 8.9 g/dL (6.5-8.1)
[2023-12-23 21:41] LABS: TROPONIN I 0.01 ng/mL (0-0.300)
[2023-12-23 22:12] VITALS: PULSE 81; RESP 18; TEMP 98.5; O2SAT 98
== END 2023-12-23 22:13 | disposition home or self-care (01) ==
LOC: ER 20:07
DX: C85.90 Non-Hodgkin lymphoma, unspecified, unspecified site (principal); D63.8 Anemia in other chronic diseases classified elsewhere; E87.1 Hypo-osmolality and hyponatremia; I10 Essential (primary) hypertension; E11.9 Type 2 diabetes mellitus without complications; I25.10 Atherosclerotic heart disease of native coronary artery without angina pectoris; K76.9 Liver disease, unspecified; D64.9 Anemia, unspecified; Z72.0 Tobacco use
CPT/HCPCS: 36415; 80053; 82550; 84484; 85025; 93005; 99283